=== PATIENT | female | born 1965 | race Caucasian/White ===

== ENCOUNTER 2018-04-08 10:30 | Day surgery (SDC) | payer MEDICAID ==
[2018-04-08] MEDS ORDERED: PROPOFOL 10 MG/ML VIAL IV ONE (10:31)
[2018-04-08] MEDS ORDERED: LIDOCAINE 2% MDV (20MG/ML) 20ML VIAL IV ONE (10:31)
--- NOTE | 2018-04-09 10:41 | Operative Note ---
DATE OF SURGERY: 04/08/2018 OPERATION: COLONOSCOPY with cold snare and hot snare polypectomies. PREOPERATIVE DIAGNOSIS: Colon cancer screening, family history of colon polyps. POSTOPERATIVE DIAGNOSIS: Transverse colon polyp and rectal polyp. PREPARATION QUALITY: Excellent. ESTIMATED BLOOD LOSS: Minimal. SPECIMENS: Transverse colon polyp and rectal polyp. COMPLICATIONS: None apparent. PROCEDURE: After informed consent was obtained from the patient, she was placed in the left lateral decubitus position in the endoscopy suite, sedated and monitored by the department of anesthesia. Digital rectal exam was unremarkable. A well-lubricated [id number] colonoscope was inserted into the rectum and advanced to the cecum. The cecum and cecal bulb were unremarkable. There were a few ascending colon diverticula. The remainder of the ascending colon was unremarkable. The transverse colon did reveal a sessile polyp approximately 3-4 mm. This was removed with a cold snare and minimal bleeding was noted. The polyp was retrieved without incident. The remainder of the transverse colon, descending colon, and sigmoid colon were unremarkable. The rectum was unremarkable in J-turn views but forward views did reveal a 1.0 cm sessile polyp removed in piecemeal fashion with a polypectomy snare and ERBE Endocut current. There was no bleeding at the site. The polyp was retrieved. The rectal ampulla deflated, and the endoscope was removed. RECOMMENDATIONS: The patient should follow a soft low-fiber diet for the next 2 weeks. She will require repeat exam in 1-3 years pending tissue histology. As always, thank you for allowing me to participate in the healthcare of your patients. CC: MATT Fitzgerald
== END 2018-04-08 12:45 | disposition home or self-care (01) ==
LOC: HOP 10:30
PROVIDERS: ATTEND Internal Medicine Gastroenterology
DX: Z12.11 Encounter for screening for malignant neoplasm of colon (principal); Z83.71 Family history of colonic polyps; D12.3 Benign neoplasm of transverse colon; D12.8 Benign neoplasm of rectum; K57.30 Diverticulosis of large intestine without perforation or abscess without bleeding; E78.00 Pure hypercholesterolemia, unspecified

== ENCOUNTER 2019-03-22 12:57 | Emergency (ER) | payer MEDICAID ==
--- NOTE | 2019-03-22 13:07 | Emergency Department Record ---
History of Present Illness - General Chief complaint: Eye Problem Stated complaint: EYE PAIN Time Seen by Provider: 03/22/19 13:04 Source: Patient - History of Present Illness Initial comments: The patient states that she has had pain behind her left eye for the past three days which radiated through to the back of her head and is associated with nausea. She took aspirin and ibuprofen without relief. She denies vision changes or pain in the eye itself. No trauma to that eye. She states it is 8/10 curr ently. She denies slurred speech, weakness in either side of her body, facial droop, fevers, chills, stiff neck. MD chief complaint: Other (headache behind left eye) - Related Data Allergies Allergy/AdvReac Type Severity Reaction Status Date / Time bee pollen Allergy Severe ANAPHYLAXIS Unverified 03/22/19 11:40 Review of Systems Reviewed: No additional complaints except as noted below Constitutional: Reports: As per HPI. Denies: Chills, Fever, Malaise, Night sweats, Weakness, Weight change Eyes: Reports: As per HPI. Denies: Eye discharge, Eye pain, Photophobia, Vision change ENT: Reports: As per HPI. Denies: Congestion, Dental pain, Ear pain, Epistaxis, Hearing loss, Throat pain Respiratory: Reports: As per HPI. Denies: Cough, Dyspnea, Hemoptysis, Stridor, Wheezes Cardiovascular: Reports: As per HPI. Denies: Arrhythmia, Chest pain, Dyspnea on exertion, Edema, Murmurs, Orthopnea, Palpitations, Paroxysmal nocturnal dyspnea, Rheumatic Fever, Syncope Endocrine: Reports: As per HPI. Denies: Fatigue, Heat or cold intolerance, Polydipsia, Polyuria Gastrointestinal: Reports: As per HPI. Denies: Abdominal pain, Constipation, Diarrhea, Hematemesis, Hematochezia, Melena, Nausea, Vomiting Genitourinary: Reports: As per HPI. Denies: Abnormal menses, Discharge, Dyspareunia, Dysuria, Frequency, Hematuria, Incontinence, Retention, Urgency Musculoskeletal: Reports: As per HPI. Denies: Arthralgia, Back pain, Gout, Joint swelling, Myalgia, Neck pain Skin: Reports: As per HPI. Denies: Bruising, Change in color, Change in hair/nails, Lesions, Pruritus, Rash Neurological: Reports: As per HPI. Denies: Abnormal gait, Confusion, Headache, Numbness, Paresthesias, Seizure, Tingling, Tremors, Vertigo, Weakness Psychiatric: Reports: As per HPI. Denies: Anxiety, Auditory hallucinations, Depression, Homicidal thoughts, Suicidal thoughts, Visual hallucinations Hematological/Lymphatic: Reports: As per HPI. Denies: Anemia, Blood Clots, Easy bleeding, Easy bruising, Swollen glands Past Medical History - SOCIAL HISTORY Smoking Status: Current every day smoker - RESPIRATORY Hx Respiratory Disorders: Yes Hx Asthma: No Hx Bronchitis: Yes Hx Pneumonia: Yes Hx Sleep Apnea: No - CARDIOVASCULAR Hx Cardio Disorders: Yes Hx Abnormal EKG: No Hx Chest Pain: No Hx CHF: No Hx Deep Vein Thrombosis: No Hx Edema: No Hx Heart Attack: No Hx Hypertension: No Hx Irregular Heartbeat: No Hx Palpitations: No Comment:: high cholesterol - NEURO Hx Neuro Disorders: Yes Hx CVA: No Hx Headaches: No Hx of Migraines: No Hx Neuropathy: No Hx Seizures: Yes (adolescent) Hx TIA: No - GI Hx GI Disorders: No Hx Abdominal Pain: No Hx Crohn's Disease: No Hx Diverticulitis: No Hx Irritable Bowel: No Hx Liver Disease: No Hx Nausea/Vomiting: No - Hx Genitourinary Disorders: No Comment:: 4 years ago - ENDOCRINE Hx Endocrine Disorders: No - MUSCULOSKELETAL Hx Musculoskeletal Disorders: No - PSYCH Hx Psych Problems: Yes Hx Anxiety: Yes Hx Behavior Problems: Yes Hx Depression: Yes - HEMATOLOGY/ONCOLOGY Hx Hematology/Oncology Disorders: No Physical Exam - General General Appearance: Alert, Oriented x3, Cooperative, Moderate distress (due to pain) - Head Head exam: Normal inspection Head exam detail: Other (no tenderness over scalp or head or facial surfaces.). negative: Tenderness of temporal artery - Eye Eye exam: Normal appearance, PERRL, EOMI. negative: Conjunctival injection, Nystagmus, Periorbital swelling, Periorbital tenderness, Scleral icterus Pupils: Normal accommodation, Other (No visual field defects with left eye or with both eyes together; ) - ENT ENT exam: Normal exam, Mucous membranes moist, Normal external ear exam, Normal orophraynx, TM's normal bilaterally Ear exam: Normal external inspection. negative: External canal tenderness Nasal Exam: Normal inspection. negative: Discharge, Sinus tenderness Mouth exam: Normal external inspection, Tongue normal Teeth exam: Normal inspection. negative: Dental caries Throat exam: Normal inspection. negative: Tonsillar erythema, Tonsillomegaly, Tonsillar exudate - Neck Neck exam: Normal inspection, Full ROM, Other (flexes chin to chest easily). negative: Lymphadenopathy, Meningismus, Tenderness - Respiratory Respiratory exam: Normal lung sounds bilaterally. negative: Respiratory di stress - Cardiovascular Cardiovascular Exam: Regular rate, Normal rhythm, Normal heart sounds - GI/Abdominal GI/Abdominal exam: Soft, Normal bowel sounds. negative: Tenderness - Rectal Rectal exam: Deferred - exam: Deferred - Extremities Extremities exam: Normal inspection, Full ROM, Normal capillary refill. negative: Calf tenderness, Pedal edema, Tenderness - Back Back exam: Reports: Normal inspection, Full ROM. Denies: CVA tenderness (R), CVA tenderness (L), Muscle spasm, Rash noted, Tenderness - Neurological Neurological exam: Alert, CN II-XII intact, Normal gait, Oriented X3, Reflexes normal, Other (normal ambulation, speech and mental status. ). negative: Motor sensory deficit - Psychiatric Psychiatric exam: Normal affect, Normal mood - Skin Skin exam: Dry, Intact, Normal color, Warm Course - Reevaluation(s) Reevaluation #1: Patient states her headache has greatly improved and is only at the back of her head. Her eye is pain free, vision unchanged, nausea resolved. She is ready to go home. Head CT report is negative per radiologist. 03/22/19 15:15 03/22/19 15:18 Medical Decision Making - Management Options MDM Management: No Additional Work-up Planned - Data Complexity MDM Data: Labs Ordered and/or Reviewed, X-Ray Ordered and/or Reviewed (N oncontrast head CT negative per radiologist.) - Lab Data Result diagrams: 03/22/19 13:31 03/22/19 13:31 Disposition Disposition: Discharge Clinical Impression: Headache Qualifiers: Headache type: unspecified Headache chronicity pattern: acute headache Intractability: not intractable Qualified Code(s): R51 - Headache Disposition: Home, Self-Care Condition: (1) Good Instructions: Acute Headache (ED), General Headache (ED) Additional Instructions: Continue present medications. PCP follow up in office as needed. Quality - Quality Measures Quality Measures: N/A - Blood Pressure Screening Does Patient Have Any of the Following: No Blood Pressure Classification: Pre-Hypertensive BP Reading Systolic Measurement: 142 Diastolic Measurement: 89 Screening for High Blood Pressure: < Pre-Hypertensive BP, F/U Documented > [G8950] Pre-Hypertensive Follow-up Interventions: Follow-up with rescreen every year., Lifestyle modifications., Referral to alternative/primary care provider. Lifestyle Modification: Weight Reduction, Dietary Approaches to Stop Hypertension (DASH) Eating Plan, Dietary Sodium Restriction, Increased Physical Activity, Moderation in alcohol (ETOH) consumption
[2019-03-22] MEDS ORDERED: METOCLOPRAMIDE HCL 10 MG/2 ML VIAL IVP ONE (13:24)
[2019-03-22] MEDS ORDERED: DIPHENHYDRAMINE HCL 50 MG/ML VIAL IVP ONE (13:25)
[2019-03-22] MEDS ORDERED: KETOROLAC 30 MG/ML VIAL IVP ONE (13:25)
[2019-03-22 13:41] LABS: ABSOLUTE NEUTROPHIL COUNT 5.63; BASO % 0.4 % (0-6); EOS % 0.7 % (0-6); HEMATOCRIT 43.7 % (35.0-47.0); HEMOGLOBIN 13.8 gm/dl (11.6-16.0); LYMPH % 25.1 % (16-45); MEAN CELL VOLUME 85.7 fl (81-97); MEAN CORPUSCULAR HEMOGLOBIN 27.1 pg (27-33); MEAN CORPUSCULAR HGB CONC 31.6 g/dl (32-36); MEAN PLATELET VOLUME 10.3 fl (7.4-10.4); MONO % 6.8 % (0-9); PLATELET COUNT 280 K/uL (130-400); RED CELL DISTRIBUTION WIDTH 14.5 % (11.5-14.5); WHITE BLOOD COUNT W/O DIFF 8.4 K/uL (4.2-12.2)
[2019-03-22 13:51] LABS: BLOOD UREA NITROGEN 11 mg/dL (6-20); CREATININE 0.8 mg/dL (0.5-0.9); EST GLOMERULAR FILTRATION RATE > 60 mL/min; INR 0.9; PARTIAL THROMBOPLASTIN TIME 27.7 SECONDS (24.5-39.1); PROTHROMBIN TIME (PATIENT) 9.1 SECONDS (9.5-12.1)
[2019-03-22 13:54] LABS: GLUCOSE,RANDOM 99 mg/dL (74-109)
--- NOTE | 2019-03-22 14:25 | CT SCAN REPORT ---
EXAMINATION: CT Head without IV Contrast EXAM DATE: 03/22/2019 2:02 PM TECHNIQUE: Standard protocol CT images of the head were obtained without intravenous contrast. Bose l and sagittal reconstructed images were created. INDICATION: Headache over left side of head COMPARISON: No relevant comparison studies HAND DOMINANCE: Unknown. ENCOUNTER: Not applicable FINDINGS: No intra-axial or extra-axial hemorrhage. No extra-axial fluid collections. No mass effect or shift o f midline structures. No ventriculomegaly. No secondary CT findings of acutely increased intracranial or intraventricular pressure. Brain volume and ventricular size are appropriate for patient's stated age. No ventricular outflow ob struction. Garza-white matter differentiation is preserved. No discrete white matter abnormalities. No sulcal eff acement. No suspicious areas of altered attenuation. Midline structures and craniocervical junction are unremarkable. No significant intracranial atherosclerotic calcifications. No depressed or widely calvarial fractures. No aggressive calvarial lesions. Visualized paranasal sinuses and temporal bone structures are well-aerated. Orbital compartments are unremarkable. IMPRESSION: No acute intracranial abnormality to the limits of noncontrast CT technique. Dictated by: Nicole Anedrson MD on 03/22/2019 2:20 PM. .
== END 2019-03-22 15:47 | disposition home or self-care (01) ==
LOC: ER 12:57
DX: R51 Headache (principal); R11.0 Nausea; H57.12 Ocular pain, left eye; F17.210 Nicotine dependence, cigarettes, uncomplicated
CPT/HCPCS: 70450; 80048; 85025; 85610; 85651; 85730; 96374; 96375; 99284; J1200; J1885; J2765